=== PATIENT | female | born 1980 | race Caucasian/White ===

== ENCOUNTER 2022-07-13 10:13 | Outpatient (CLI) | payer BC, SELFPAY ==
--- NOTE | 2022-07-13 10:15 | CRLHL7_ITS ---
For Patients: As a result of the Cures Act, medical imaging exams and procedure reports are released immediately into your electronic medical record. You may view this report before your referring provider. If you have questions, please contact your health care provider. BILATERAL SCREENING MAMMOGRAM WITH COMPUTER-AIDED DETECTION AND TOMOSYNTHESIS TECHNIQUE: CC and MLO views were obtained. These mammographic images have been obtained using full-field digital technique. These mammographic images were interpreted with the benefit of computer-aided detection. Breast Tomosynthesis was used in this interpretation. COMPARISON FILM: 07/12/21, 07/09/20, 07/16/19. FINDINGS: The breasts are extremely dense, which lowers the sensitivity of mammography IMPRESSION: There is no radiographic evidence for malignancy. ASSESSMENT: BI-RADS Category 2: Benign RECOMMENDATION: Routine screening mammogram in 1 year. A lay language report of this examination will be provided to the patient. Fransisco Morrissey M.D. Diagnostic Radiologist [email or web address] / be/Dictated by: Fransisco Morrissey MD @ 07/13/2022 11:50:00 AM (Electronically Signed)
== END 2022-07-13 10:14 | disposition home or self-care (01) ==
PROVIDERS: PCP Physician Assistant Medical; Visit Provider Physician Assistant
DX: Z12.31 Encounter for screening mammogram for malignant neoplasm of breast (principal); R92.2 Inconclusive mammogram
CPT/HCPCS: 77063; 77067

== ENCOUNTER 2023-07-14 08:51 | Outpatient (CLI) | payer OTHER, SELFPAY ==
--- NOTE | 2023-07-14 09:15 | CRLHL7_ITS ---
For Patients: As a result of the Century Cures Act, medical imaging exams and procedure reports are released immediately into your electronic medical record. You may view this report before your referring provider. If you have questions, please contact your health care provider. BILATERAL SCREENING MAMMOGRAM WITH COMPUTER-AIDED DETECTION AND TOMOSYNTHESIS TECHNIQUE: CC and MLO views were obtained. These mammographic images have been obtained using full-field digital technique. These mammographic images were interpreted with the benefit of computer-aided detection. Breast Tomosynthesis was used in this interpretation. COMPARISON FILM: 07/13/22, 07/12/21, 07/09/20. FINDINGS: The breasts are heterogeneously dense, which may obscure small masses IMPRESSION: There is no radiographic evidence for malignancy. ASSESSMENT: BI-RADS Category 2: Benign RECOMMENDATION: Routine screening mammogram in 1 year. A lay language report of this examination will be provided to the patient. Fransisco Morrissey M.D. Diagnostic Radiologist [email or web address] Transcribed: 5:54 [email or web address] genao/Dictated by: Fransisco Morrissey MD @ 07/14/2023 1:01:00 PM (Electronically Signed)
== END 2023-07-14 08:52 | disposition home or self-care (01) ==
LOC: MAMMO 08:54
PROVIDERS: PCP Physician Assistant Medical; Visit Provider Physician Assistant Medical
DX: Z12.31 Encounter for screening mammogram for malignant neoplasm of breast (principal); R92.2 Inconclusive mammogram
CPT/HCPCS: 77063; 77067

== ENCOUNTER 2024-10-30 07:31 | Outpatient (CLI) | payer BC, SELFPAY ==
--- NOTE | 2024-10-30 07:45 | CRLHL7_ITS ---
For Patients: As a result of the Cures Act, medical imaging exams and procedure reports are released immediately into your electronic medical record. You may view this report before your referring provider. If you have questions, please contact your health care provider. DIGITAL DIAGNOSTIC BILATERAL MAMMOGRAM USING TOMOSYNTHESIS AND COMPUTER-AIDED DETECTION RIGHT BREAST ULTRASOUND CLINICAL HISTORY: RIGHT breast lump. COMPARISON: 07/14/23, 07/13/22, 07/12/21. TECHNIQUE: Digital BILATERAL mammogram in four projections with computer-aided detection. Tomosynthesis was used in this interpretation. Real-time ultrasound imaging of RIGHT breast with imaging documentation. BREAST COMPOSITION: The breasts are heterogeneously dense, which may obscure small masses. FINDINGS: 3D CC/MLO BILATERAL mammogram images submitted. Stable benign, previously biopsied calcifications within the RIGHT breast with associated biopsy clip. Benign calcifications also noted in the LEFT breast. Nodular densities in the lateral RIGHT breast without architectural distortion. Targeted RIGHT breast ultrasound performed at 8 o`clock 6 cm from the nipple. Fibrocystic changes present corresponding to the nodular densities and area of palpable concern. Largest cyst measures 7 x 6 x 7 millimeters. Post biopsy changes are present. IMPRESSION: Benign fibrocystic changes and benign calcifications within the RIGHT breast. No suspicious findings. No evidence of malignancy. RECOMMENDATIONS: Routine screening mammography. High risk assessment also recommended. A lay language report of this examination will be provided to the patient. BI-RADS Category 2: Benign Dictated by Fransisco Morrissey MD @ 10/30/2024 9:03:27 AM jj/Dictated by: Fransisco Morrissey MD @ 10/30/2024 9:03:00 AM (Electronically Signed)
--- NOTE | 2024-10-30 08:15 | CRLHL7_ITS ---
For Patients: As a result of the Cures Act, medical imaging exams and procedure reports are released immediately into your electronic medical record. You may view this report before your referring provider. If you have questions, please contact your health care provider. SEE DIGITAL DIAGNOSTIC BILATERAL MAMMOGRAM PERFORMED THE SAME DAY [email or web address]:[email or web address] genao/Dictated by: Fransisco Morrissey MD @ 10/30/2024 9:03:00 AM (Electronically Signed)
== END 2024-10-30 07:32 | disposition home or self-care (01) ==
LOC: MAMMO 07:31
PROVIDERS: PCP Physician Assistant Medical; Visit Provider Obstetrics & Gynecology
DX: N63.10 Unspecified lump in the right breast, unspecified quadrant (principal)
CPT/HCPCS: 76642; 77066; G0279